=== PATIENT | female | born 1950 | race Caucasian/White ===

== ENCOUNTER → 2022-08-08 13:55 | Outpatient (CLI) | payer MEDICARE, SELFPAY ==
--- NOTE | ~2022-08-08 | XR_ITS ---
XR humerus RT DATE: 08/08/2022 14:31 INDICATION: Injury. Right shoulder, arm pain TECHNIQUE: AP and lateral views COMPARISON: None FINDINGS: There is osteopenia. Normal alignment at the acromioclavicular, glenohumeral and elbow joints. No humeral fracture or disl ocation, periosteal reaction or bone destruction. IMPRESSION: No fracture or dislocation Reviewed, dictated and finalized at location L. [facility] IMPRESSION: No fracture or dislocation
== END ==
PROVIDERS: PCP Family Medicine; Visit Provider Family Medicine
DX: S49.92XA Unspecified injury of left shoulder and upper arm, initial encounter (principal); X58.XXXA Exposure to other specified factors, initial encounter
CPT/HCPCS: 73060

== ENCOUNTER 2024-01-15 09:30 | Outpatient (CLI) | payer MEDICARE, SELFPAY ==
[2024-01-15 10:24] LABS: Alanine Aminotransferase 15 U/L (6-35); Albumin Level 4.3 g/dL (3.5-5.1); Alkaline Phosphatase 81 U/L (38-126); Anion Gap 10 mmol/L (4-12); Aspartate Amino Transferase 24 U/L (14-36); Bilirubin,Total 0.8 mg/dL (0.2-1.3); Blood Urea Nitrogen 16 mg/dL (7-17); Calcium 9.5 mg/dL (8.4-10.2); Carbon Dioxide 26 mmol/L (22-30); Chloride 106 mmol/L (98-107); Cholesterol 150 mg/dL (0-200); Estimated Glomerular Filt Rate > 60; Glucose 108 mg/dL (65-110); HDL Direct 51 mg/dL; Potassium 4.3 mmol/L (3.4-5.0); Sodium 142 mmol/L (137-145); Triglycerides 252 mg/dL (<150)
[2024-01-15 10:27] LABS: Hemoglobin A1C 6.5 % (<5.7)
[2024-01-15 10:35] LABS: LDL Cholesterol Direct 62 mg/dL
[2024-01-15 10:49] LABS: Creatinine Urine 123.5 mg/dL
[2024-01-15 10:54] LABS: MALB Creatinine Ratio 7.1 mg/g (0-30); Microalbumin Urine Random 8.8 mg/L (0-16.7)
== END 2024-01-15 09:31 | disposition home or self-care (01) ==
LOC: ANHLAB 09:35
PROVIDERS: PCP Family Medicine; Visit Provider Family Medicine
DX: E11.9 Type 2 diabetes mellitus without complications (principal); E78.2 Mixed hyperlipidemia; I10 Essential (primary) hypertension
CPT/HCPCS: 36415; 80053; 80061; 82043; 83036